=== PATIENT | female | born 1950 | race Caucasian/White ===

== ENCOUNTER 2024-12-17 03:53 | Emergency (ER) | payer MEDICARE, SELFPAY ==
[2024-12-17 03:55] VITALS: BP 144/88
[2024-12-17 04:27] VITALS: BMI 30.2
[2024-12-17 04:51] LABS: COVID-19 Antigen Negative (Negative)
--- NOTE | 2024-12-17 05:19 | ED.GENMED ---
History of Present Illness
General
Chief Complaint: Cold/Flu/URI Symptoms
Source: patient
Time Seen by Provider: 12/17/24 04:13
Nursing documentation reviewed up to this point in time: agreed with
History of Present Illness
History of Present Illness:
This is a pleasant 74-year-old female that presents with fever, cough and feeling nauseated. She states that she also has a headache. Was seen at her primary care provider yesterday and diagnosed with a viral illness. She states that she has not
been feeling well since then. States she developed a mild to moderate headache, chills, and diaphoresis. Patient denies any chest pain. She states that she does have a cough. Denies fever. Patient has an extensive cardiac history including
cardiomyopathy first diagnosed at age 41. She has a defibrillator. She has hypertension.
Past History
Past History
ED Past Medical History: HTN, Hypercholesterolemia, NIDDM and Other (Viral myocarditis with cardiomyopathy)
ED Past Surgical History: Cardiac (AICD)
Social History
Tobacco: Non-smoker
Alcohol: None
Drug: None
Personal:
Living: alone
Employment: Employed
Family History
Family History: Other (Noncontributory) and Adopted
Review of Systems
Review of Systems
Allergies reviewed?: Yes
All Other Systems: ROS reviewed and negative except as documented in HPI and ROS
Constitutional: Reports fatigue, sleep disturbance and chills
EENT: Reports no symptoms
Respiratory: Reports cough
Cardiac: Denies chest pain
ABD/GI: Reports nausea
: Reports no symptoms
Musculoskeletal: Reports no symptoms
Skin: Reports no symptoms
Neurological: Reports no symptoms
Endocrine: Reports no symptoms
Hematologic/Lymphatic: Reports no symptoms
Psychiatric: Reports no symptoms
Phy Exam
General Physical Exam
General Presentation: mild distress
General age: appears stated age
General Skin: warm and dry
General Habitus: normal
General Mental: alert
General Hydration: appears well hydrated
ENT Exam
ENT Exam: EOMI, pharynx normal, neck supple and normocephalic
Eye Exam
Eye Exam: PERRL, cornea clear and conjunctiva normal
Cardiovascular Exam
Cardiovascular Exam: regular rate/rhythm, no edema, no murmur and normal peripheral pulses
Pulmonary Exam
Pulmonary Exam: lungs clear, no respiratory distress, no rales, no crackles, no rhonchi, no stridor, no wheezing and no cough
Gastrointestinal Exam
Gastrointestinal Exam: normal bowel sounds, non tender, soft, no organomegaly, no pulsatile mass and non distended
Neurological Exam
Neurological Exam: alert, oriented x3, no motor deficits and speech normal
Musculoskeletal Exam
Musculoskeletal Exam: full ROM and no edema
Skin Exam
Skin Exam: normal color, warm/dry, no rash and no petechia
Psychiatric Exam
Psychiatric Exam: normal mood/affect
Course
Orders/Labs/Results
Orders:
Orders
12/17/24 04:21
COVID-19 Antigen Urgent
Source: Nasal Swab
Influenza A+B Rapid Molecular Urgent
RAMÓN Source: Nasal Swab
Specimen Description:
Rapid Strep Group A Urgent
RAMÓN Source: Throat/Pharynx
Specimen Description:
Date Specimen was Collected: 12/17/24
Time Specimen was Collected: 04:15
12/17/24 05:18
Acetaminophen [Tylenol] 1,000 mg PO NOW STA
Ondansetron Orally Disint [Zofran Odt (Orally Disintegrating)] 4 mg PO NOW STA
CR Chest - 2 Views Urgent
Comment:
Reason For Exam: cough
12/17/24 05:19
Electrocardiogram (*1) Urgent
Reason for Study: QTc Monitoring
EKG- Treatment ONCE
Vital Signs
Initial and Last Documented VS:
Initial Vital Signs
Temp Pulse Resp BP Pulse Ox
98.2 F 98 22 144/88 98
12/17/24 03:55 12/17/24 03:55 12/17/24 03:55 12/17/24 03:55 12/17/24 03:55
Last Documented Vital Signs
Temp Pulse Resp BP Pulse Ox
98.2 F 98 22 144/88 98
12/17/24 03:55 12/17/24 03:55 12/17/24 03:55 12/17/24 03:55 12/17/24 03:55
*Radiology
Radiology exam reviewed: all reviewed NAD by ED Provider (Unchanged)
*Critical Care Note
Total Time (30-74mins, 75-104mins- exclusive of procedures): Not Applicable
Update Note
Update Note:
EKG shows normal sinus rhythm rate of 75 with normal intervals, normal axis. No evidence of acute ischemia present. There are T wave inversions that was seen on September 24, 2012.
ED Attending Note
-
Portions of this chart may have been created with voice recognition software.� Occasional wrong word or��sound alike� substitutions may have occurred due to the inherent limitations of voice recognition software.
Discharge Plan
Departure
Patient Disposition: Home (Routine Discharge)
Date of Disposition: 12/17/24
Time of Disposition: 06:30
Patient with high blood pressure during this ER visit?: Yes
Condition: Good
Discharge Problem:
Influenza
Instructions: Flu in adults - Discharge instructions, BLOOD PRESSURE
Prescriptions:
New
ondansetron 4 mg tablet,disintegrating
4 mg PO Q8H 5 Days Qty: 15 0RF
No Action
carvedilol 12.5 MG tablet
12.5 mg PO BID
aspirin [Aspir-Low] 81 MG tablet,delayed release (DR/EC)
81 mg PO DAILY
lisinopril 10 MG tablet
20 mg PO HS
ascorbic acid (vitamin C) [Vitamin C] 500 MG tablet,chewable
500 mg PO DAILY
rosuvastatin [Crestor] 40 MG tablet
40 mg PO HS
vitamin E (dl, acetate) 400 UNITS capsule
400 units PO DAILY
multivitamin [Daily Multiple] 1 EACH tablet
1 ea PO DAILY
amoxicillin 500 MG capsule
500 mg PO TID Qty: 20 0RF
ondansetron 4 MG tablet,disintegrating
4 mg PO TIDPRN PRN (Reason: nausea/vomiting) Qty: 10 0RF
Referrals:
Priscilla Alvarado MD [Family Provider] -
Activity Restrictions/Additional Instructions:
It was a pleasure meeting you and taking part in your care. We hope for your continued healing and wellness.
Please read discharge instructions in their entirety. However, they are for general education and may not describe your exact diagnosis at discharge. Information on your ER visit and medical conditions were discussed with you along with appropriate
follow up information...
If indicated, please take your medications as instructed and indicated on discharge paperwork.
Please schedule a follow up appointment as directed. Call to schedule an appointment
Please return to the emergency department with ANY change in, persisting, or worsening of symptoms. If any of your symptoms do not improve, or persist, or become more severe within 6-12 hours, please return to the emergency department for further
care.
Please return to the emergency department if you develop a headache, neck pain/stiffness, fever greater than 100.4F, chest pain, shortness of breath, persistent nausea, vomiting, slurred speech, difficulty walking, numbness/tingling, weakness, signs
of infection or any other symptoms that are worrisome to you.
If you have any questions or concerns please do not hesitate to call the Hospital at or E-mail me directly at [email or web address]
Interventions
Interventions:
*Risk Screen - Suicide Last Done: 12/17/24 03:55
*General Assessment Last Done: 12/17/24 04:27
*Neglect/Abuse Screening Last Done: 12/17/24 03:55
*ED COVID-19 Vaccine History Last Done: 12/17/24 04:27
ED- Pulmonary Assessment Last Done: 12/17/24 04:27
Discharge Date and Time
Print Language: FINNISH
[2024-12-17] MEDS: ZOFRAN ODT (ORALLY DISINTEGRATING) 4 MG PO (05:35)
[2024-12-17] MEDS: TYLENOL 1000 MG PO (05:52)
== END 2024-12-17 07:00 | disposition home or self-care (01) ==
LOC: EMR 03:53
PROVIDERS: EMERGENCY PHYSICIAN Student in an Organized Health Care Education/Training Program; FAMILY PHYSICIAN Family Medicine
DX: J11.1 Influenza due to unidentified influenza virus with other respiratory manifestations (principal); I40.0 Infective myocarditis; I10 Essential (primary) hypertension; E78.00 Pure hypercholesterolemia, unspecified; E11.9 Type 2 diabetes mellitus without complications; I42.9 Cardiomyopathy, unspecified; Z95.810 Presence of automatic (implantable) cardiac defibrillator
CPT/HCPCS: 99283; 71046; 87070; 87502; 87811; 87880; 93005